=== PATIENT | female | born 1995 | race African-American/Black ===

== ENCOUNTER 2016-03-30 22:00 | Emergency (ER) | payer BC, OTHER ==
[~2016-03-30] VITALS: Ht 165.1 cm; Wt 75.0 kg
[~2016-03-30 22:00] MED LIST: CEPH500 PO; PYRI200T4 PO
[2016-03-30 22:02] VITALS: BP 138/69; PULSE 84; RESP 16; TEMP 98.3; O2SAT 100
[2016-03-30] MEDS ORDERED: PRED20 PO (22:53)
[2016-03-30] MEDS ORDERED: ZYRT10TA PO (22:53)
[2016-03-30] MEDS ORDERED: RANI150T PO (22:53)
[2016-03-30] MEDS ORDERED: RANITIDINE HCL 150 MG TAB PO ONE (23:00)
[2016-03-30] MEDS ORDERED: predniSONE 20 MG TAB PO ONE (23:00)
--- NOTE | 2016-03-30 23:00 | PD ---
HPI Chief Complaint: Skin Problem Time Seen by Provider: 22:45 Travel History International Travel<30 days: No Contact w/Intl Traveler<30days: No Traveled to known affect area: No History of Present Illness HPI This is a 21-year-old female who is currently approximately 5 weeks based on last menstrual period. She presents for evaluation of a rash. Symptoms started yesterday at 3 PM. She describes it as a pruritic rash which comes and goes. The rash is primarily exhibited itself on her abdomen and extremities. She took some Benadryl yesterday and the rash resolved however symptoms returned today. She took Benadryl and the symptoms persisted which prompted evaluation. At this point in time she only has a small amount of the rash on her right upper abdomen wall. She has never had this problem before. Denies any new medications, creams, lotions, detergents, new clothing, recent travel, recent change in living environment. Denies any swelling of the lips, tongue, throat, shortness of breath. She has no other complaints. [facility] Past Medical History Immunizations Current: Yes Tetanus Vaccination: Unknown Influenza Vaccination: No ?: Unknown LMP: 02/20/16 Social History Alcohol Use: Yes (socially) Tobacco Use: Yes Substance Use: No Allergies-Medications (Allergen,Severity, Reaction): Coded Allergies: No Known Allergies (Unverified , 03/30/16) Reported Meds & Prescriptions Reported Meds & Active Scripts Active Zyrtec Allergy (Cetirizine HCl) 10 Mg Tab 10 Mg PO DAILY 5 Days Prednisone 20 Mg Tab 20 Mg PO BID 5 Days Ranitidine (Ranitidine HCl) 150 Mg Tab 150 Mg PO DAILY 5 Days Review of Systems Except as stated in HPI: all other systems reviewed are Neg Physical Exam Narrative GENERAL: Well-developed well-nourished female in no acute distress SKIN: Warm and dry. The patient has wheals on her right upper abdomen. She has pictures on her phone revealing wheels that were previously on her arms and hands and wrists. No vesicles, no pustules, no petechiae, no purpura. HEAD: Atraumatic. Normocephalic. EYES: Pupils equal and round. No scleral icterus. No injection or drainage. ENT: No nasal bleeding or discharge. Mucous membranes pink and moist. NECK: Trachea midline. No JVD. CARDIOVASCULAR: Regular rate and rhythm. No murmur appreciated. RESPIRATORY: No accessory muscle use. Clear to auscultation. Breath sounds equal bilaterally. Gastrointestinal: Abdomen soft, nontender, nondistended. Data Data Last Documented VS Vital Signs Date Time Temp Pulse Resp B/P Pulse Ox O2 Delivery O2 Flow Rate FiO2 03/30/16 22:51 16 03/30/16 22:02 98.3 84 138/69 100 Orders Ranitidine (Zantac) (03/30/16 23:00) Prednisone (Deltasone) (03/30/16 23:00) [facility] Medical Decision Making Medical Screen Exam Complete: Yes Emergency Medical Condition: Yes Medical Record Reviewed: Yes Differential Diagnosis Urticaria, PUPS, contact dermatitis, bug bites, tinea corporis, eczema, pityriasis rosea, viral exanthem Narrative Course 21-year-old female presents for evaluation of a waxing and waning pruritic rash. On examination she has obvious hives. There is no evidence of airway compromise, respiratory involvement. Plan is to treat the patient with nonsedating H1 and H2 antihistamines as well as a short course of prednisone. She is stable for discharge. Diagnosis Primary Impression: Hives Additional Instructions: Take medication as prescribed. Follow up with a primary care physician. Follow -up with an CERTIFIED REGISTERED NURSE PRACTITIONER. Return for any new or worsening symptoms such as shortness of breath, swelling of the lips, tongue, throat. Med/Other Pt SpecificInfo: Prescription(s) given Scripts Cetirizine (Zyrtec Allergy)10 Mg Tab10 Mg PO DAILY 5 Days Ref 0 Prov:Ele Lugo MD 03/30/16 Prednisone 20 Mg Tab20 Mg PO BID 5 Days Ref 0 Prov:Ele Lugo MD 03/30/16 Ranitidine 150 Mg Thm567 Mg PO DAILY 5 Days Ref 0 Prov:Ele Lugo MD 03/30/16 Disposition: DISCHARGE HOME Condition: Stable Sylvester Lennon Mar 30, 2016 23:00
[2016-03-30] MEDS ORDERED: FAMOTIDINE 20 MG TAB PO ONE (23:02)
== END 2016-03-30 23:26 | disposition home or self-care (01) ==
LOC: NEPB 22:00
DX: L50.9 Urticaria, unspecified (principal)
CPT/HCPCS: 99283